=== PATIENT | female | born 1995 | race Caucasian/White ===

== ENCOUNTER 2018-02-10 17:05 | Emergency (ER) | payer MEDICAID ==
[~2018-02-10] VITALS: Ht 152.4 cm; Wt 54.5 kg
[~2018-02-10 17:05] MED LIST: BIRTH CONTROL PILLS; FLOVENT 110MCG7.9 GM IH; PROAIR HFA0.09 MG/AC IH
[2018-02-10 17:19] VITALS: TEMP 98.5
[2018-02-10 18:22] LABS: COLLECTION METHOD CLEAN CATCH
[2018-02-10 18:29] LABS: MUCOUS Present /lpf; PH 5 (5-8); SQUAMOUS EPITHELIAL 0-2 /hpf; URINE APPEARANCE Hazy; URINE BACTERIA None Seen /hpf; URINE BILIRUBIN Negative (NEGATIVE); URINE BLOOD Negative (NEGATIVE); URINE COLOR Yellow; URINE GLUCOSE Negative (NEGATIVE); URINE KETONE 2+ (NEGATIVE); URINE LEUKOCYTE ESTERASE Negative (NEGATIVE); URINE NITRATE Negative (NEGATIVE); URINE PROTEIN(semi-quant) Negative (NEGATIVE); URINE RBC 0-2 /hpf; URINE UROBILINOGEN Negative (NEGATIVE)
[2018-02-10] MEDS ORDERED: CLEOCIN HCL300 MG PO (18:57)
[2018-02-10] MEDS ORDERED: NORCO 325 MG-51 TAB PO (18:57)
[2018-02-10 19:04] VITALS: BP 117/82; PULSE 93
== END 2018-02-10 19:05 | disposition home or self-care (01) ==
LOC: COL.ER 17:05
PROVIDERS: Emergency Medicine
DX: O26.892 Other specified pregnancy related conditions, second trimester (principal); K08.89 Other specified disorders of teeth and supporting structures; Z79.51 Long term (current) use of inhaled steroids; Z3A.19 19 weeks gestation of pregnancy

== ENCOUNTER 2018-03-10 22:45 | Outpatient (CLI) | payer MEDICAID ==
[~2018-03-10] VITALS: Ht 152.4 cm; Wt 54.5 kg
[~2018-03-10 22:45] MED LIST changes: +CLEOCIN HCL300 MG PO; +NORCO 325 MG-51 TAB PO
[2018-03-10] MEDS ORDERED: PRENATAL-U1 CAP PO (23:06)
[2018-03-10 23:15] VITALS: BP 115/70; PULSE 89; TEMP 98.1
== END 2018-03-10 23:36 | disposition home or self-care (01) ==
LOC: LDRO 22:45
DX: O62.9 Abnormality of forces of labor, unspecified (principal); Z3A.23 23 weeks gestation of pregnancy

== ENCOUNTER 2018-03-18 21:15 | Outpatient (CLI) | payer MEDICAID ==
[~2018-03-18] VITALS: Ht 152.4 cm; Wt 59.1 kg
[~2018-03-18 21:15] MED LIST changes: +PRENATAL-U1 CAP PO
[2018-03-18 21:45] VITALS: BP 112/68; PULSE 96; TEMP 98.8
[2018-03-18 22:00] VITALS: BP 100/58; PULSE 95
[2018-03-18 22:20] VITALS: BP 101/62; PULSE 99
== END 2018-03-18 22:26 | disposition home or self-care (01) ==
LOC: LDRO 21:15
DX: O46.92 Antepartum hemorrhage, unspecified, second trimester (principal); O26.892 Other specified pregnancy related conditions, second trimester; R25.2 Cramp and spasm; Z3A.24 24 weeks gestation of pregnancy

== ENCOUNTER 2018-06-30 20:13 | Outpatient (CLI) | payer MEDICAID ==
[~2018-06-30] VITALS: Ht 152.4 cm; Wt 64.1 kg
--- NOTE | 2018-06-30 20:20 | NUR ---
at 39 weeks 2 days arrives to unit with complaint of contractions. Pt unable to tell me how frequent, says they are random. Pt reports good movement, denies any bleeding or LOF. Pt states her membranes where stripped yesterday and she was dilated . Pt oriented to room. Clean gown on. EFM and toco explained and applied. Plan of care reviewed. Admission assessment started. 2024 - SVE /high
[2018-06-30 20:30] VITALS: BP 111/74; PULSE 96; TEMP 98.3
[2018-06-30 21:00] VITALS: BP 101/66; PULSE 99
[2018-06-30 21:15] VITALS: BP 100/64; PULSE 90
[2018-06-30 21:30] VITALS: BP 109/78; PULSE 100
--- NOTE | 2018-06-30 21:30 | NUR ---
Pt reports feeling 1 contraction while being here. Category 1 tracing. SVE unchanged from prior check.
--- NOTE | 2018-06-30 21:50 | NUR ---
Pt discharged home at this time. Discharge instructions reviewed with patient and spouse. Pt verbalized understanding. Pt educated on return precautions. Pt seen ambulating off unit with spouse.
== END 2018-06-30 21:50 | disposition home or self-care (01) ==
LOC: LDRO 20:13 → LDR 20:20
DX: O62.9 Abnormality of forces of labor, unspecified (principal); Z3A.39 39 weeks gestation of pregnancy

== ENCOUNTER 2018-07-06 06:38 | Inpatient (IN) | payer MEDICAID ==
[~2018-07-06] VITALS: Ht 152.4 cm; Wt 64.1 kg
--- NOTE | 2018-07-06 19:50 | NUR ---
Report received. Pt here for scheduled cervidil. Pt in room with monitors on, clean gown on. Pt denies LOF, vaginal bleeding or contractions. Reports good movement. Plan of care explained to pt and family who verbalize understanding. 1954: IV started and labs obtained via IV site. IV flushes without difficulties. Consents and assessment completed. 2034: FHR strip reactive. SVE 50/-3 and cervidil inserted without difficulties. Pt repositioned to and educated on plan of care. Pt verbalizes understanding. Call light within reach.
[2018-07-06 20:08] VITALS: BP 116/72; PULSE 90; TEMP 98.5
[2018-07-06] MEDS ORDERED: NATURAL IRON65 MG PO (20:10)
[2018-07-06] MEDS ORDERED: ZANTAC 150150 MG PO (20:11)
[2018-07-06 20:45] VITALS: BP 102/63; PULSE 100
[2018-07-06 20:49] LABS: BASO % 0.3 % (0.0-2.0); EOS % 0.3 % (0-4.0); GRAN # 8.6 (1.4-6.5); GRAN % 77.2 % (42.2-75.2); HEMOGLOBIN 10.8 g/dl (12.5-16.0); LYMPH # 1.6 (1.2-3.4); MEAN CELL VOLUME 95 fl (80.0-100.0); MEAN CORPUSCULAR HEMOGLOBIN 32 pg (27.0-31.0); MEAN CORPUSCULAR HGB CONC 34 g/dl (33.0-37.0); MEAN PLATELET VOLUME 9.9 fl (7.4-10.4); MONO # 0.8 (0.1-0.6); MONO % 7.4 % (1.7-9.3); PLATELET COUNT 246 K/mm3 (130-400); RED BLOOD COUNT 3.35 M/mm3 (4.10-5.30); REDCELL DISTRIBUTION WIDTH-CV 14.9 % (11.5-14.5)
[2018-07-06 20:50] LABS: HEMATOCRIT 31.9 % (37.0-47.0)
[2018-07-06 21:15] VITALS: BP 105/64; PULSE 89
[2018-07-06 21:45] VITALS: BP 116/68; PULSE 101
[2018-07-06 22:15] VITALS: BP 104/62; PULSE 98
[2018-07-06 22:31] VITALS: TEMP 98.2
--- NOTE | 2018-07-06 22:31 | NUR ---
Pt denies feeling any pain. Ocassional contractions noted on toco, pt denies feeling them. Category 1 tracing for last 2 hours. Reviewing plan of care with patient and family. Pt requesting to do intermittent monitoring tonight.
[2018-07-07] VITALS (65 sets, daily range): BP systolic 91–135; BP diastolic 51–92; PULSE 76–130; TEMP 97.4–98.4
--- NOTE | 2018-07-07 03:50 | NUR ---
0317 - 2630 Monitors applied for intermittent monitoring. Pt sleeping comfortably upon entering room. Category 1 tracing. [place] with contractions every 1.5 - 2 minutes, pt denies feeling any contractions or cramping.
--- NOTE | 2018-07-07 06:00 | NUR ---
Cervidil pulled at this time. Pt comfortable in bed, denies any pain. Pt encouraged to eat and may shower if she would like. SVE /-3. Plan of care reviewed with patient and pts mother.
--- NOTE | 2018-07-07 06:30 | NUR ---
0630-Recieved bedside shift report from. ABIGAIL Mcadams. Patient off EFM at this time. Up in bed. Encouarged to eat, toast made and eating at this time. Placed on EFM. Updated on plan of care, LR to left forearm. VSS. 0653-Pitocin started per protocol and orders at 2mu/min.
--- NOTE | 2018-07-07 10:20 | NUR ---
1020-Dr. Campo on unit. Reviews EFM. In to discuss plan of care with patient. Orders to continue pitocin per protocol to max dose of 30mu/min. 1024-SVE /-2 1025-AROM, clear fluid noted.
--- NOTE | 2018-07-07 10:37 | NUR ---
1037-Variable decel in FHR down to 100bpm, spontaneous return to baseline. 1041-Varabile decel in FHR dwon to 100bpm, spontaneous return to baseline, repsitioned from sitting upright in bed to WL. 1103-additional tow small varaible decles in FHR with broken tracing, spontaneous return to baseline. Repositioned RL. Dr. Díaz remains on unit. Reviews FHR monitor.
--- NOTE | 2018-07-07 11:20 | NUR ---
1120-Variable decel down to 80bpm with spontaneous return to baseline. Repositioned LL, Patient requests epidural. Manas Robb CRNA notified. Dr. Diaz on unit. Updated .
--- NOTE | 2018-07-07 11:50 | NUR ---
1150-Patient continues to have intermittent variable decles. Repositoned RL at this time. 1156-MANNY Workman to patient room. Patients sits upright on bedside for placement of Epidural. VSS. 1203-Pitocin paused due to difficulty tracing FHR while sitting up for epidurl placement. 1206-SS administered by MANNY Workman patient denies symptoms of reaction or side effects. 1207-Pitocin resumed. 1214-Patient repositioned WL,updated on plan of care and safety.
--- NOTE | 2018-07-07 12:37 | NUR ---
1237-Maternal BP 93/59 and HR 96bpm patient denies symptoms of hypotension. 1239-10mg Ephedrine given per protocol, see EMAR. 1245-Beaver to DD, clear jose urine return, SVE /-2, small red trickle of blood following SVE, pad placed not saturated. 1257-Maternal BP 97/54, HR 127bpm. 10mg Ephedrine administered. Pad rechecked, no further bleeding noted. 1304-Dr. Díaz updated on patient, see physician notification. 1315-Maternal BP 111/61, HR 110.
--- NOTE | 2018-07-07 14:05 | NUR ---
1405-Peanut ball placed WR, adjusted toco. Deep varible down to 90bpm lasting 120seconds, spontaneous return to baseline, moderate variability. 1413-Recurrant varaible decels, +accels moderate variability 1420-Repositioned LL with penaut, continued frequent variable decles. 1430-Difficulty tracing contractions due to freqent repositioning of patient. [place] tracing inverted, RN adjusts tocol. 1447-SVE by this RN , repositioned RL with peanut Deep varaibles continue despite repositioning. 1454-400ml Emesis. 1457-4mg zofran give,see emar 1500-Maternal BP 95/51 patient reports feeling "hazy and blurry." 10mg ephedrine given. IVF bolus 1506-Maternal BP 110/65 1513-Dr. Díaz updated, see physician notification. Patient sitting up WL per MD request. 1522-MD calls RN back and gives orders to stop pitocin at this time. Pitocin off. 1530-25mg IV benadryl given patient itching, see EMAR 1550-patient LL follwing two late appearing decels in FHR, Baseline FHR 160bpm 1610-Repositioned RL, Deep Variable decel down ot 110bpm spontaeous return to baseline 1620-Patient LL, 100ml Emesis. Dr. Díaz to unit. Reviews FHR monitor. 1625-SVE , unchanged from previous check. MD reviews plan of care with patient. 1630- MD calls for c/s at this time. 1641-patient off EFM to OR at this time.
--- NOTE | 2018-07-07 17:45 | NUR ---
174-Patient to pacu via bed. Alert and oriented x4. IVF to LFA. Patient Denies pain. Abdominal binder in place. Dressing to abdomen C/D/I. Fundal massage firm, lochia WNL. [place] to DD, clear jose urine. VSS,see recovery flow record. Report recieved from MANNY Workman.
[2018-07-08 00:30] VITALS: BP 107/55; PULSE 100; TEMP 97.8
[2018-07-08 04:45] VITALS: BP 107/63; PULSE 99; TEMP 98.5
[2018-07-08 07:25] VITALS: BP 120/74; PULSE 105; TEMP 97.7
--- NOTE | 2018-07-08 07:27 | NUR ---
Rests in bed, alert. Request pain medication. Ibuprofen 800 mg., percocet 5/325 mg. two given per request and as ordered.
--- NOTE | 2018-07-08 09:01 | NUR ---
Initial visit; Parents thanked Refrigeration Operator for offering congratulations and God's blessings for the of their son. Refrigeration Operator thanked them for choosing [facility].
--- NOTE | 2018-07-08 12:30 | NUR ---
Rests in bed, alert. baby, latches on well.
[2018-07-08 13:15] VITALS: BP 100/66; PULSE 91; TEMP 97.9
[2018-07-08 15:30] VITALS: BP 123/77; PULSE 105; TEMP 98
--- NOTE | 2018-07-08 15:30 | NUR ---
Rests in bed, alert. Ibuprofen 800 mg given as ordered.
[2018-07-08 19:20] VITALS: BP 101/61; PULSE 102; TEMP 98.1
[2018-07-09 08:10] VITALS: BP 116/77; PULSE 100; TEMP 97.5
[2018-07-09] MEDS ORDERED: IBU800 M1 PO (08:53)
[2018-07-09] MEDS ORDERED: PERCOCET 325 MG1 TA2 PO (08:53)
== END 2018-07-09 14:50 | disposition home or self-care (01) | DRG 788 ==
LOC: LDR 06:38 → OB 18:55
PROVIDERS: ADMIT Student in an Organized Health Care Education/Training Program
PROC: 3E0P7VZ Introduction of Hormone into Female Reproductive, Via Natural or Artificial Opening (ICD-10-PCS; 2018-07-06)
PROC: 3E033VJ Introduction of Other Hormone into Peripheral Vein, Percutaneous Approach (ICD-10-PCS; 2018-07-06)
PROC: 10D00Z1 Extraction of Products of Conception, Low, Open Approach (ICD-10-PCS; principal; 2018-07-07)
DX: O48.0 Post-term pregnancy (principal); Z3A.40 40 weeks gestation of pregnancy; Z37.0 Single live birth; O62.0 Primary inadequate contractions; O76 Abnormality in fetal heart rate and rhythm complicating labor and delivery; O34.03 Maternal care for unspecified congenital malformation of uterus, third trimester; Q51.3 Bicornate uterus
CPT/HCPCS: J0690; J1200; J1885; J2210; J2270; J2370; J2405; J2550; J2590; J2795; J7120

== ENCOUNTER 2019-03-14 22:21 | Emergency (ER) | payer SELFPAY ==
[~2019-03-14] VITALS: Ht 165.1 cm; Wt 52.3 kg
[~2019-03-14 22:21] MED LIST changes: +IBU800 M1 PO; +NATURAL IRON65 MG PO; +PERCOCET 325 MG1 TA2 PO; +ZANTAC 150150 MG PO
[2019-03-14 22:32] VITALS: TEMP 97.2
[2019-03-14 22:53] LABS: STREP SCREEN NEGATIVE
[2019-03-14] MEDS ORDERED: AMOXICILLIN 8751 TAB PO (22:58)
[2019-03-14 23:10] VITALS: BP 120/80; PULSE 85
== END 2019-03-14 23:10 | disposition home or self-care (01) ==
LOC: COL.ER 22:21
PROVIDERS: Physician Assistant
DX: J02.9 Acute pharyngitis, unspecified (principal); K08.89 Other specified disorders of teeth and supporting structures; R59.0 Localized enlarged lymph nodes

== ENCOUNTER 2020-11-20 08:46 | Inpatient (IN) | payer OTHER, MEDICAID ==
[~2020-11-20] VITALS: Ht 152.4 cm; Wt 63.2 kg
[2020-11-20] VITALS (17 sets, daily range): BP systolic 81–114; BP diastolic 30–70; PULSE 68–97; TEMP 97.6–98.4
[~2020-11-20 08:46] MED LIST changes: +AMOXICILLIN 8751 TAB PO
--- NOTE | 2020-11-20 08:50 | NUR ---
Patient arrives ambulatory with spouse for scheduled repeat cesearan section. Patient denies contractions, ROM, or vaginal bleeding, and reports normal movement. Plan of care reviewed, patient agrees and changes into gown. EFM explained and placed. VS obtained. IV started in RH, labs obtained and LR infusing per order. Consents explained and signed. Denies questions. 0925- Patient taken off EFM per protocol. Pre-op shave and prep completed per protocol. 0930- Report to Bi Toussaint RN and Sherri Ulloa RN who assume care of patient at this time.
[2020-11-20 09:26] LABS: MEAN CELL VOLUME 91 fl (80.0-100.0); MEAN CORPUSCULAR HGB CONC 31 g/dl (33.0-37.0); MEAN PLATELET VOLUME 9.4 fl (7.4-10.4); PLATELET COUNT 344 K/mm3 (130-400); RED BLOOD COUNT 3.14 M/mm3 (4.10-5.30); REDCELL DISTRIBUTION WIDTH-CV 16.9 % (11.5-14.5)
[2020-11-20 09:28] LABS: HEMATOCRIT 28.6 % (37.0-47.0); HEMOGLOBIN 8.8 g/dl (12.5-16.0); MEAN CORPUSCULAR HEMOGLOBIN 28 pg (27.0-31.0)
[2020-11-20 11:26] LABS: BAND 2 % (0-10); EOSINOPHIL 2 % (0-4); LYMPHOCYTE 19 % (20.0-51.0); NEUTROPHILS 68 % (42.0-75.2)
[2020-11-20 11:30] LABS: ANISOCYTOSIS 1+; HYPOCHROMIA 3+
[2020-11-20 11:31] LABS: PLATELET ESTIMATE NORMAL (NORMAL)
[2020-11-21 04:30] VITALS: BP 102/63; PULSE 77; TEMP 98.2
[2020-11-21 06:47] LABS: MEAN CELL VOLUME 93 fl (80.0-100.0); MEAN CORPUSCULAR HGB CONC 30 g/dl (33.0-37.0); MEAN PLATELET VOLUME 9.5 fl (7.4-10.4); PLATELET COUNT 308 K/mm3 (130-400); RED BLOOD COUNT 2.67 M/mm3 (4.10-5.30); REDCELL DISTRIBUTION WIDTH-CV 17.1 % (11.5-14.5)
[2020-11-21 06:50] LABS: HEMATOCRIT 24.7 % (37.0-47.0); HEMOGLOBIN 7.5 g/dl (12.5-16.0); MEAN CORPUSCULAR HEMOGLOBIN 28 pg (27.0-31.0)
[2020-11-21 08:01] LABS: BAND 20 % (0-10); LYMPHOCYTE 12 % (20.0-51.0); METAMYELOCYTE 2 % (0-0); NEUTROPHILS 64 % (42.0-75.2); PLATELET ESTIMATE NORMAL (NORMAL)
[2020-11-21 08:04] VITALS: BP 112/76; PULSE 74; TEMP 98.1
[2020-11-21] MEDS ORDERED: IBU800 M1 PO (09:46)
[2020-11-21] MEDS ORDERED: PERCOCET 325 MG1 TA2 PO (09:46)
--- NOTE | 2020-11-21 10:07 | NUR ---
Initial visit; Parents thanked [employer] Con[employer] Operator for offering congratulations and God's blessings for the of their daughter. [employer] Con[employer] Operator thanked family for choosing [facility].
[2020-11-21 19:00] VITALS: BP 112/71; PULSE 74; TEMP 98
[2020-11-22 08:00] VITALS: BP 110/71; PULSE 69; TEMP 97.6
== END 2020-11-22 10:15 | disposition home or self-care (01) | DRG 788 ==
LOC: OB 08:46
PROVIDERS: ADMIT Student in an Organized Health Care Education/Training Program
PROC: 10D00Z1 Extraction of Products of Conception, Low, Open Approach (ICD-10-PCS; principal; 2020-11-20)
DX: O34.211 Maternal care for low transverse scar from previous cesarean delivery (principal); J45.909 Unspecified asthma, uncomplicated; K21.9 Gastro-esophageal reflux disease without esophagitis; O99.02 Anemia complicating childbirth; D64.9 Anemia, unspecified; O99.52 Diseases of the respiratory system complicating childbirth; O99.62 Diseases of the digestive system complicating childbirth; Z3A.39 39 weeks gestation of pregnancy; Z37.0 Single live birth
CPT/HCPCS: J0690; J1100; J1885; J2370; J2405; J2590; J7120

== ENCOUNTER 2023-07-10 05:13 | Inpatient (IN) | payer OTHER, MEDICAID ==
[~2023-07-10] VITALS: Ht 152.4 cm; Wt 67.7 kg
[2023-07-10] VITALS (18 sets, daily range): BP systolic 80–113; BP diastolic 38–83; PULSE 70–96; TEMP 97.6–98.5
[2023-07-10] MEDS ORDERED: LR 1,000 ML IV SCH ×3 (05:15→07:15)
[2023-07-10 05:51] LABS: BASO % 0.4 % (0.0-2.0); EOS # 0.2 K/mm3 (0.0-0.7); EOS % 1.7 % (0.0-4.0); GRAN # 5.9 K/mm3 (1.4-6.5); GRAN % 66.5 % (42.2-75.2); HEMOGLOBIN 11.2 g/dl (12.5-16.0); LYMPH # 1.9 K/mm3 (1.2-3.4); LYMPH % 21.3 % (20.0-51.0); MEAN CELL VOLUME 98 fl (80.0-100.0); MEAN CORPUSCULAR HEMOGLOBIN 33 pg (27-31); MEAN CORPUSCULAR HGB CONC 33 g/dl (33.0-37.0); MEAN PLATELET VOLUME 8.7 fl (7.4-10.4); MONO # 0.8 K/mm3 (0.1-0.6); MONO % 9.2 % (1.7-9.3); PLATELET COUNT 257 K/mm3 (130-400); RED BLOOD COUNT 3.41 M/mm3 (4.10-5.30)
[2023-07-10 05:52] LABS: HEMATOCRIT 33.5 % (37.0-47.0)
[2023-07-10] MEDS ORDERED: NS 30 ML IV ONE (06:55)
[2023-07-10] MEDS ORDERED: dexAMETHasone 10 MG/ML VIAL ONE (06:55)
[2023-07-10] MEDS ORDERED: Phenylephrine 10 MG/ML VIAL ONE (06:55)
[2023-07-10] MEDS ORDERED: Oxytocin 10 UNITS/ML VIAL ONE (06:55)
[2023-07-10] MEDS ORDERED: EPINEPHrine 1 MG/1 ML Ampule ONE (06:55)
[2023-07-10] MEDS ORDERED: Ondansetron 4 MG/2 ML VIAL ONE (06:55)
[2023-07-10] MEDS ORDERED: Ketorolac 30 MG/ML VIAL ONE (06:55)
[2023-07-10] MEDS ORDERED: Meperidine 50 MG/ML 1 ML VIAL IV PRN (07:15)
[2023-07-10] MEDS ORDERED: Ondansetron 4 MG/2 ML VIAL IV PRN ×2 (07:15→08:45)
[2023-07-10] MEDS ORDERED: diphenhydrAMINE 50 MG/ML 1 ML VIAL IV PRN (07:15)
[2023-07-10] MEDS ORDERED: oxyCODONE/Acetaminophen 5-325 MG TAB PO PRN (08:45)
[2023-07-10] MEDS ORDERED: LR 1,000 ML IV PRN (08:45)
[2023-07-10] MEDS ORDERED: Naloxone 0.4 MG/ML VIAL IV PRN (08:45)
[2023-07-10] MEDS ORDERED: Loratadine 10 MG TAB PO PRN (08:45)
[2023-07-10] MEDS ORDERED: Measles/Mumps/Rubella Virus Vaccine Live w Diluent 0.5 ML VIAL SQ SCH (08:45)
[2023-07-10] MEDS ORDERED: Magnes Hydrox (MOM) 80 MG/ML 30 ML CUP PO PRN (08:45)
--- NOTE | 2023-07-10 13:20 | NUR ---
PT PUMPED 2.5ML TOTAL, RN LABELED MILK AND PUT IN NURSERY FRIDGE
[2023-07-10] MEDS ORDERED: Ibuprofen 800 MG TAB PO SCH (14:33)
--- NOTE | 2023-07-10 15:40 | NUR ---
PT PUMPED 2ML TOTAL, RN LABELED MILK AND PUT IN NURSERY FRIDGE
[2023-07-10] MEDS ORDERED: Sennosides/Docusate 8.6-50 MG TAB PO SCH (17:00)
[2023-07-10] MEDS ORDERED: traZODone 50 MG TAB PO PRN (21:00)
[2023-07-11 03:15] VITALS: BP 108/68; PULSE 89; TEMP 97.9
[2023-07-11 07:35] VITALS: BP 123/88; PULSE 106; TEMP 98.2
== END 2023-07-11 09:40 | disposition home or self-care (01) | DRG 787 ==
LOC: OB 05:13
PROVIDERS: ADMIT Student in an Organized Health Care Education/Training Program
PROC: 10D00Z1 Extraction of Products of Conception, Low, Open Approach (ICD-10-PCS; principal; 2023-07-10)
DX: O34.211 Maternal care for low transverse scar from previous cesarean delivery (principal); O98.52 Other viral diseases complicating childbirth; Z3A.39 39 weeks gestation of pregnancy; Z37.0 Single live birth; Z88.2 Allergy status to sulfonamides; Z88.8 Allergy status to other drugs, medicaments and biological substances; B02.9 Zoster without complications; Z23 Encounter for immunization
CPT/HCPCS: J0171; J0665; J0690; J1100; J1885; J2371; J2405; J2590; J7120